=== PATIENT | male | born 1950 | race Caucasian/White ===

== ENCOUNTER 2016-09-29 22:42 | Inpatient (IN) | payer MEDICARE, OTHER ==
[~2016-09-29] VITALS: Ht 170.2 cm; Wt 82.1 kg
--- NOTE | 2016-09-29 22:54 | NUR ---
66 YO MALE BB RA FROM HOME. PT IS ALERT X 3, PER EMS PT HAD A SYNCOPE EPISODE AT HOME, FAMILY CALLED 911. PT SKIN WARM AND DRY, RR EVEN AND UNLABORED. PT GOWNED, PLACE DON EPIC PROFESSIONAL. AWAITING ORDERS FROM PROVIDER, WILL CONTINUE TO MONITOR
--- NOTE | 2016-09-29 23:21 | NUR ---
MIRA OWEN MD AT BED SIDE FOR EVAL
[2016-09-29] MEDS ORDERED: IV SET PRIMARY PUMP SET 1 EA INFUS.SET MC ONE (23:29)
[2016-09-29] MEDS ORDERED: IV NS 0.9% 500 ML IV ONE (23:29)
[2016-09-29] MEDS ORDERED: IV NS 0.9% 500 ML BAG IV ONE (23:30)
[2016-09-30] VITALS (23 sets, daily range): BP systolic 113–151; BP diastolic 68–90
[2016-09-30] LABS: BASOPHILS # (AUTO) 0.1 /CMM (0.0-0.2); BASOPHILS % (AUTO) 1.8 % (0.0-2.0); EOSINOPHILS % (AUTO) 0.1 % (0.0-6.0); HEMATOCRIT 45 % (39-51); HEMOGLOBIN 14.8 g/dL (13.5-17.5); LYMPHOCYTES # (AUTO) 0.6 /CMM (0.8-4.8); LYMPHOCYTES % (AUTO) 7.4 % (20.0-44.0); MEAN CORPUSCULAR HEMOGLOBIN 30 PG (26.0-33.0); MEAN CORPUSCULAR HGB CONC 33 g/dl (31.0-36.0); MEAN CORPUSCULAR VOLUME 90 fL (80-96); MONOCYTES # (AUTO) 0.4 /CMM (0.1-1.30); MONOCYTES % (AUTO) 5.4 % (2.0-12.0); NEUTROPHILS # (AUTO) 6.8 /CMM (1.8-8.9); NEUTROPHILS % (AUTO) 85.3 % (43.0-81.0); PLATELET COUNT (AUTO) 74 /CMM (150-450); RDW COEFFICIENT OF VARIATION 20.3 (11.5-15.0); RED BLOOD CELL COUNT(AUTO) 4.97 MIL/uL (4.5-6.0); WHITE BLOOD COUNT (AUTO) 7.9 K/uL (4.3-11.0)
[2016-09-30 00:14] LABS: TROPONIN I 0.135 ng/mL (0.00-0.056)
[2016-09-30 00:15] LABS: ALBUMIN 3.7 g/dL (3.4-5.0); BILIRUBIN,DIRECT 0.2 mg/dL (0.0-0.2); CALCIUM, SERUM 9.9 mg/dL (8.5-10.1); CREATININE 2.3 mg/dL (0.6-1.3); POTASSIUM 2.9 mmol/L (3.5-5.1); TOTAL PROTEIN, SERUM 7.1 g/dL (6.4-8.2)
[2016-09-30 00:21] LABS: INR 1.01 (0.87-1.13); PROTHROMBIN TIME 10.8 SECS (9.5-12.7)
[2016-09-30 00:35] LABS: PARTIAL THROMBOPLASTIN TIME < 20 SEC (23-34)
[2016-09-30] MEDS ORDERED: ASPIRIN 81 MG TAB.CHEW PO ONE (01:30)
--- NOTE | 2016-09-30 01:30 | NUR ---
PT BECAME TACHY IN, HR IN THE 130'SM MD OWEN NOTIFIED
--- NOTE | 2016-09-30 01:31 | NUR ---
[facility] CALLED
[2016-09-30] MEDS ORDERED: ASPIRIN 81 MG TAB.CHEW ONE (01:41)
[2016-09-30] MEDS ORDERED: ENOXAPARIN SODIUM 30 MG/0.3 ML DISP.SYRIN ONE (01:41)
[2016-09-30] MEDS ORDERED: ENOXAPARIN SODIUM 40 MG/0.4 ML DISP.SYRIN SQ ONE (01:41)
--- NOTE | 2016-09-30 01:41 | NUR ---
EMT AT BED SIDE FOR REPEAT EKG
[2016-09-30 01:43] LABS: BAND % (MANUAL) 5 % (0.0-5.0); LYMPHOCYTES % (MANUAL) 4 % (16-48); MONOCYTES % (MANUAL) 5 % (0-11.0); NEUTROPHILS % (MANUAL) 86 (42-76)
--- NOTE | 2016-09-30 01:47 | NUR ---
[facility] PAGED FOR ADMISSION
[2016-09-30] MEDS ORDERED: ENOXAPARIN SODIUM 60 MG/0.6 ML DISP.SYRIN SQ ONE (02:00)
--- NOTE | 2016-09-30 02:21 | NUR ---
TRANSPORTED PT TO ICU BED WITH EMT WITHOUT INCIDENT
[2016-09-30] MEDS ORDERED: ONDANSETRON HCL/PF 4 MG/2 ML VIAL IVP PRN (02:30)
[2016-09-30] MEDS ORDERED: MAGNESIUM HYDROXIDE 30 ML UDC PO PRN (02:30)
[2016-09-30] MEDS ORDERED: ZOLPIDEM TARTRATE 5 MG TABLET PO PRN (02:30)
[2016-09-30] MEDS ORDERED: MAG HYDROX/AL HYDROX/SIMETH 30 ML UDC PO PRN (02:30)
[2016-09-30] MEDS ORDERED: ACETAMINOPHEN 325 MG TABLET PO PRN (02:30)
[2016-09-30] MEDS ORDERED: HYDROCODONE/APAP 5/325MG 1 EACH TABLET PO PRN (02:30)
[2016-09-30] MEDS ORDERED: Z GUARD REMEDY 2 OZ OINT TP PRN (02:30)
[2016-09-30] MEDS ORDERED: DILTIAZEM HCL 50 MG IV IV PRN (03:00)
[2016-09-30] MEDS ORDERED: IV SET PRIMARY PUMP SET 1 EA INFUS.SET MC ONE (03:32)
[2016-09-30] MEDS ORDERED: IV NS 0.9% 1,000 ML ONE (03:32)
[2016-09-30] MEDS ORDERED: HEPARIN SODIUM, PORCINE 5000 UNITS/1 ML VIAL ONE (03:46)
[2016-09-30] MEDS: HEPARIN INFUSION/D5W 500 ML IV PRN ×2 (03:54→21:01)
[2016-09-30] MEDS: IV NS 0.9% 1,000 ML IV PRN ×2 (03:56→18:52)
[2016-09-30] MEDS ORDERED: HEPARIN SODIUM, PORCINE 5000 UNITS/1 ML VIAL SQ ONE (04:00)
--- NOTE | 2016-09-30 05:24 | NUR ---
DIETITIAN PT WAS ADMITTED FROM ER WITH DIAGNOSIS R/O PULMONARY EMBOLISM. SYNCOPAL EPISODE @ HOME, WITNESSED BY FAMILY, S/P FALL. CT-SCAN OF THE HEAD- NEGATIVE. PT IS SUPPOSED TO HAVE NUCLEAR MEDICINE STUDY IN A.M. TO R/O PE. PT IS AWAKE, ALERT, ORIENTED x3, COMPLIANT & COOPERATIVE. SPEECH IS CLEAR. NOMAN. MOVES ALL EXTREMITIES & FOLLOWS COMMANDS. VITAL SIGNS STABLE, AFEBRILE, SCOPE - SR. LUNGS CLEAR. O2 2 L VIA N/C. STARTED IV FLUID NS @ 75 ML/H. ALSO STARTED WEIGHT BASED HEPARIN DRIP NOT FOR ACUTE CORONARY SYNDROME AT RATE 1350 UNITS/HR AFTER BOLUS OF HEPARIN 6000 UNITS ACCORDING PROTOCOL. PT IS COMFORTABLE, DENIES ANY PAIN, SOB OR ANY OTHER DISCOMFORT. WILL CONTINUE CLOSE MONITORING.
--- NOTE | 2016-09-30 06:04 | NUR ---
NIGHT SHIFT MANAGER NUCLEAR MEDICINE /EXT 4134/ WAS CALLED AND MASSAGE LEFT. ALSO RADIOLOGY DEPARTMENT WAS NOTIFIED /EXT 4069/ THAT PT NEEDS NUCLEAR MEDICINE TEST TO BE DONE TO R/O PE. PT IS COMFORTABLE RESTING. NO S/S OF ANY DISTRESS. REMAINS ON HEPARIN DRIP. NEXT PTT AT 10 A.M.
[2016-09-30] MEDS ORDERED: POTASSIUM CHLORIDE 20 MEQ TAB.PRT.SR PO ONE ×2 (06:42→17:00)
[2016-09-30] MEDS: POTASSIUM CHLORIDE 20 MEQ TAB.PRT.SR PO SCH ×5 (06:46→12:16)
[2016-09-30] MEDS: ASPIRIN 325 MG TABLET PO SCH (09:45)
[2016-09-30] MEDS: METOPROLOL TARTRATE 25 MG TABLET PO SCH ×2 (09:46→21:00)
[2016-09-30] MEDS: PANTOPRAZOLE 40 MG TABLET.DR PO SCH (09:46)
[2016-09-30 10:23] LABS: MAGNESIUM 2.4 mg/dL (1.8-2.4); PHOSPHORUS 4.7 mg/dL (2.5-4.9)
[2016-09-30 10:35] LABS: THYROID STIMULATING HORMONE 0.211 uIU/mL (0.358-3.74)
[2016-09-30] MEDS ORDERED: LENA10CA PO (10:45)
[2016-09-30] MEDS ORDERED: LOSA50TA21 PO (10:45)
[2016-09-30] MEDS ORDERED: FURO40TA5 PO (10:45)
[2016-09-30] MEDS ORDERED: DEXA4TAB PO (10:45)
[2016-09-30] MEDS ORDERED: ACYC400T PO (10:45)
[2016-09-30] MEDS ORDERED: HYDR-3658 PO (10:45)
[2016-09-30] MEDS ORDERED: TEMA30CA PO (10:45)
[2016-09-30] MEDS ORDERED: METO5TAB7 PO (10:45)
[2016-09-30] MEDS ORDERED: DIPH1TAB PO (10:45)
[2016-09-30] MEDS ORDERED: POTASSIUM CL 8 MEQ PO (10:45)
[2016-09-30] MEDS ORDERED: CEPH500C2 PO (10:45)
[2016-09-30] MEDS ORDERED: ROSU10TA PO (10:45)
--- NOTE | 2016-09-30 11:09 | NUR ---
R POPLITIAL POSITIVE FOR DVT, DR BAZAN NOTIFIED. PT IS CONTINUET ON HEPARIN LAST APTT IS 58, WHICH IS WITHIN THE RANGE.
[2016-09-30 12:40] LABS: CALCIUM, SERUM 9.2 mg/dL (8.5-10.1); CREATININE 2.1 mg/dL (0.6-1.3)
[2016-09-30 12:42] LABS: POTASSIUM 2.7 mmol/L (3.5-5.1)
[2016-09-30] MEDS ORDERED: HYDROCODONE/APAP 10/325MG 1 EA TABLET PO PRN (14:00)
[2016-09-30] MEDS ORDERED: DIPHENOXYLATE HCL/ATROP SULF 1 UDTAB TABLET PO PRN (14:00)
--- NOTE | 2016-09-30 14:45 | NUR ---
DR MALONE CALLED WITH REPORT OF HIGH POSSIBILITY OF PE RIGHT MID AND LOWER LUNGS ON VQ SCAN. DR BAZNA NOTIFIED.
[2016-09-30] MEDS ORDERED: TEMAZEPAM 15 MG CAPSULE PO PRN (15:30)
[2016-09-30 16:25] LABS: APPEARANCE,URINE CLOUDY (CLEAR); BILIRUBIN,URINE NEGATIVE (NEGATIVE); BLOOD, URINE NEGATIVE Ery/uL (NEGATIVE); COLOR,URINE YELLOW (YELLOW); KETONES,URINE NEGATIVE (NEGATIVE); LEUKOCYTE ESTERASE ,URINE NEGATIVE (NEGATIVE); NITRITE, URINE NEGATIVE (NEGATIVE); PH,URINE 5.5 (5.0-8.0); PROTEIN,URINE NEGATIVE (NEGATIVE); UGLUCOSE NEGATIVE (NEGATIVE); UROBILINOGEN,URINE 0.2 EU/dL (0.2)
[2016-09-30 16:27] LABS: CREATININE, URINE 122.4 MG/DL (30.0-125.0); URINE TOTAL PROTEIN 26.6 mg/dL (0-11.9)
[2016-09-30 16:51] LABS: RBC,URINE 0-2 /HPF (0-2); WBC,URINE 0-2 /HPF (0-3)
[2016-09-30 16:52] LABS: BACTERIA,URINE Moderate /HPF (None Seen); SQUAMOUS EPITHELIAL CELL,UR Rare /HPF (None Seen)
[2016-09-30 16:59] LABS: EOSINOPHIL,URINE None Seen
[2016-09-30] MEDS: ACYCLOVIR 200 MG CAPSULE PO SCH (17:48)
[2016-09-30] MEDS: CEPHALEXIN MONOHYDRATE 500 MG CAPSULE PO SCH ×2 (17:49→21:00)
[2016-09-30] MEDS: REVLIMID 10 MG PO SCH (17:49)
--- NOTE | 2016-09-30 20:00 | NUR ---
PETROPHYSICIST RCD PT W/DX NSTEMI, R/O PE; PT IS A/O x4; NSR ON MONITOR. BP WNL. CLEAR LUNG SOUNDS ON 02 2L NC. PT ASSISTED TO BSC FOR BOWEL MOVEMENT. PT C/O DIARRHEA WITH LOMOTIL GIVEN BY PRIOR SHIFT. MULTIPLE BRUISING THROUGHOUT BODY PT S/P FALL PRIOR TO ADMISSION. LFA 20 G W/NS @ 75 ML/HR AND RFA 20 G W/HEPARIN DRIP AT 1350 UNITS/HR WITH PTT TO BE DONE IN THE MORNING. PT DENIES PAIN AT THIS TIME. HOB ELEVATED. BED LOCKED AND IN LOW POSITION. CONTINUE TO MONITOR.
[2016-10-01] VITALS (21 sets, daily range): BP systolic 93–122; BP diastolic 57–74
[2016-10-01 05:05] LABS: BASOPHILS % (AUTO) 0.2 % (0.0-2.0); EOSINOPHILS # (AUTO) 0.4 /CMM (0.0-0.7); EOSINOPHILS % (AUTO) 5.5 % (0.0-6.0); HEMATOCRIT 35 % (39-51); HEMOGLOBIN 11.7 g/dL (13.5-17.5); LYMPHOCYTES # (AUTO) 0.7 /CMM (0.8-4.8); LYMPHOCYTES % (AUTO) 11.3 % (20.0-44.0); MEAN CORPUSCULAR HEMOGLOBIN 30 PG (26.0-33.0); MEAN CORPUSCULAR HGB CONC 34 g/dl (31.0-36.0); MEAN CORPUSCULAR VOLUME 89 fL (80-96); MONOCYTES # (AUTO) 0.8 /CMM (0.1-1.30); NEUTROPHILS # (AUTO) 4.6 /CMM (1.8-8.9); PLATELET COUNT (AUTO) 81 /CMM (150-450); RDW COEFFICIENT OF VARIATION 20.9 (11.5-15.0); RED BLOOD CELL COUNT(AUTO) 3.86 MIL/uL (4.5-6.0); WHITE BLOOD COUNT (AUTO) 6.5 K/uL (4.3-11.0)
[2016-10-01 05:09] LABS: ALBUMIN 2.8 g/dL (3.4-5.0); BILIRUBIN,TOTAL 0.5 mg/dL (0.2-1.0); CALCIUM, SERUM 8.4 mg/dL (8.5-10.1); CREATININE 1.4 mg/dL (0.6-1.3); MAGNESIUM 2.4 mg/dL (1.8-2.4); PHOSPHORUS 3.1 mg/dL (2.5-4.9); TOTAL PROTEIN, SERUM 5.4 g/dL (6.4-8.2)
[2016-10-01 05:10] LABS: TROPONIN I 0.137 ng/mL (0.00-0.056)
[2016-10-01 05:17] LABS: THYROID STIMULATING HORMONE 0.46 uIU/mL (0.358-3.74)
[2016-10-01 05:33] LABS: POTASSIUM 2.8 mmol/L (3.5-5.1)
[2016-10-01] MEDS ORDERED: IV SET PRIMARY PUMP SET 1 EA INFUS.SET MC ONE (05:39)
[2016-10-01] MEDS ORDERED: POTASSIUM CL. PREMIX PERIPHER. 50 ML ONE (05:39)
[2016-10-01 05:47] LABS: EOSINOPHILS % (MANUAL) 3 % (0-4); LYMPHOCYTES % (MANUAL) 12 % (16-48); MONOCYTES % (MANUAL) 7 % (0-11.0); NEUTROPHILS % (MANUAL) 78 (42-76)
[2016-10-01] MEDS ORDERED: POTASSIUM CL. PREMIX PERIPHER. 50 ML IV SCH (06:00)
--- NOTE | 2016-10-01 06:16 | NUR ---
GRAIN MILL WORKER PT NOT TOLERATING POTASSIUM IV; CALL PLACED TO DR RUANO.
[2016-10-01] MEDS ORDERED: POTASSIUM CHLORIDE 10 MEQ TABLET.SA PO SCH ×2 (07:00→08:00)
--- NOTE | 2016-10-01 08:00 | NUR ---
LSW; ASSESSMENT RECEIVED PT AWAKE AND ORIENTED X4. PT DENIES ANY PAIN OR SOB. PT ON HEPARIN DRIP AT 1100 UNITS/HR, DUE TO PE AND DVT. PTT PENDING FOR AT 1230. NO S/S OF BLEEDING. WILL CONTINUE TO MONITOR CLOSELY.
[2016-10-01] MEDS: PANTOPRAZOLE 40 MG TABLET.DR PO SCH (08:43)
[2016-10-01] MEDS: POTASSIUM CHLORIDE 20 MEQ TAB.PRT.SR PO SCH ×5 (08:44→12:16)
[2016-10-01] MEDS: ATORVASTATIN 10 MG TABLET PO SCH (08:44)
[2016-10-01] MEDS: ACYCLOVIR 200 MG CAPSULE PO SCH ×2 (08:44→17:05)
[2016-10-01] MEDS: ASPIRIN 325 MG TABLET PO SCH (08:44)
[2016-10-01] MEDS: METOPROLOL TARTRATE 25 MG TABLET PO SCH ×2 (08:45→20:40)
[2016-10-01] MEDS ORDERED: LOSARTAN POTASSIUM 50 MG TABLET PO SCH (09:00)
[2016-10-01] MEDS ORDERED: REVLIMID 10 MG PO SCH (09:00)
[2016-10-01] MEDS: CEPHALEXIN MONOHYDRATE 500 MG CAPSULE PO SCH ×4 (09:24→20:40)
[2016-10-01] MEDS: DEXAMETHASONE 4 MG TABLET PO SCH (09:25)
[2016-10-01] MEDS: REVLIMID 10 MG PO SCH (09:26)
[2016-10-01] MEDS: IV NS 0.9% 1,000 ML IV PRN ×2 (09:26→23:00)
--- NOTE | 2016-10-01 15:45 | NUR ---
MALT HOUSE OPERATOR; OOB PT REQUESTING TO GET OOB. DR. CHACON NOTIFIED AND ORDERED FOR PT TO HAVE ONE MORE DAY OF BED REST. AND GET OOB TOMORROW 10/02/16. DISCUSSED WITH PT REGARDING BED REST. PT ABLE TO VERBALIZE UNDERSTANDING OF ORDERS.
[2016-10-01] MEDS ORDERED: RIVAROXABAN 10 MG TABLET PO SCH (17:00)
[2016-10-01] MEDS ORDERED: RIVAROXABAN 15 MG TABLET PO SCH (17:00)
--- NOTE | 2016-10-01 18:50 | NUR ---
RN MS NOTES RECEIVED PT FROM ICU NURSE ALEXUS, PT AWAKE, ALERT AND ORIENTED, DENIES PAIN, NOT IN DISTRESS, ROOM SET UP ORIENTATION PROVIDED, VERBALIZED UNDERSTANDING, IV FLUIDS INFUSING WELL, PT OWN MED KEPT AT NARCOTIC BOX, ENDORSED TO PM NURSE, MADE COMFORTABLE IN BED.
--- NOTE | 2016-10-01 18:50 | NUR ---
ONYX CHIP TERRAZZO WORKER; TRANSFER TRANSFER PT TO TELEMETRY ROOM 315-2 VIA BED, WITH ACLS PROTOCOL. REPORT GIVEN TO NUVIA JEFFERSON. PT TOLERATED PROCEDURE. MEDICATION REVLIMID GIVEN TO RN AND DISCUSSED THAT NEEDS TO BE KEPT IN NARCOTIC BOX. COUNT WAS 4TAB ENDORSED. MADE AWARE THAT PT HAS HIS OWN MEDICATION STORED IN OUR PHARMACY.
--- NOTE | 2016-10-01 19:30 | NUR ---
INFANTRY INDIRECT FIRE CREWMEMBER OPENING NOTES: RECEIVED PT IN BED WITH NO APPARENT DISTRESS. PT IS A/O X4. PT IS ON TELE AND IS SR. PT HAS IV ON R HAND #20g AND L HAND 20G BEING INFUSED WITH NS AT 75ML/HR. CALL LIGHT WITHIN PT'S REACH. BED KEPT IN LOCKED, LOWEST POSITION, AND SIDE RAILS X 2 UP. WILL CONTINUE TO MONITOR PT.
[2016-10-01] MEDS: CYANOCOBALAMIN 1,000 MCG/ML VIAL IM SCH (20:40)
[2016-10-02] VITALS: BP 118/65
[2016-10-02 04:00] VITALS: BP_SYST 121; BP_SYST 125; BP_DIAS 60; BP_DIAS 64
[2016-10-02 07:23] VITALS: BP 118/66
[2016-10-02 08:03] LABS: BASOPHILS % (AUTO) 0.1 % (0.0-2.0); EOSINOPHILS # (AUTO) 0.1 /CMM (0.0-0.7); EOSINOPHILS % (AUTO) 0.7 % (0.0-6.0); HEMATOCRIT 30 % (39-51); HEMOGLOBIN 10.4 g/dL (13.5-17.5); LYMPHOCYTES # (AUTO) 0.6 /CMM (0.8-4.8); LYMPHOCYTES % (AUTO) 7.3 % (20.0-44.0); MEAN CORPUSCULAR HEMOGLOBIN 31 PG (26.0-33.0); MEAN CORPUSCULAR HGB CONC 34 g/dl (31.0-36.0); MEAN CORPUSCULAR VOLUME 89 fL (80-96); MONOCYTES # (AUTO) 0.5 /CMM (0.1-1.30); MONOCYTES % (AUTO) 6.3 % (2.0-12.0); NEUTROPHILS # (AUTO) 6.5 /CMM (1.8-8.9); NEUTROPHILS % (AUTO) 85.6 % (43.0-81.0); PLATELET COUNT (AUTO) 58 /CMM (150-450); RDW COEFFICIENT OF VARIATION 20.6 (11.5-15.0); RED BLOOD CELL COUNT(AUTO) 3.39 MIL/uL (4.5-6.0); WHITE BLOOD COUNT (AUTO) 7.6 K/uL (4.3-11.0)
--- NOTE | 2016-10-02 08:30 | NUR ---
MARINE RESOURCE ECONOMIST CLOSING NOTES: ALL NEEDS WERE ATTENDED AND ANTICIPATED FOR. PT SHOWS NO S/S OF DISTRESS. PT IS A/O X4. PT IS ON TELE AND IS SR 63. PT HAS IV ON R HAND #20g AND L HAND 20G BEING INFUSED WITH NS AT 75ML/HR. CALL LIGHT WITHIN PT'S REACH. BED KEPT IN LOCKED, LOWEST POSITION, AND SIDE RAILS X 2 UP. ENDORSED TO AM NURSE FOR ALEJANDRO.
[2016-10-02 08:31] LABS: IRON, SERUM 43 ug/dl (50-175); TOTAL IRON BINDING CAPACITY 274 ug/dl (250-450)
[2016-10-02 08:33] LABS: ALBUMIN 2.8 g/dL (3.4-5.0); BILIRUBIN,TOTAL 0.4 mg/dL (0.2-1.0); CALCIUM, SERUM 8.4 mg/dL (8.5-10.1); MAGNESIUM 2.2 mg/dL (1.8-2.4); POTASSIUM 3.8 mmol/L (3.5-5.1); TOTAL PROTEIN, SERUM 5.4 g/dL (6.4-8.2)
[2016-10-02 08:39] LABS: FERRITIN 288 ng/mL (8-388)
--- NOTE | 2016-10-02 08:45 | NUR ---
MS RN RECEIVED ON BED, AWAKE,ALERT,ORIENTED X4,NOT IN ANY FORM OF DISTRESS, RESPIRATIONS EVEN AND UNLABORED, NO SOB NOTED, LUNGS ARE CLEAR,ABDOMEN SOFT,POSITIVE BOWEL SOUNDS, DENIES PAIN AT THIS TIME,ALL NEEDS ATTENDED.
[2016-10-02 09:00] LABS: LYMPHOCYTES % (MANUAL) 11 % (16-48); MONOCYTES % (MANUAL) 8 % (0-11.0); NEUTROPHILS % (MANUAL) 81 (42-76)
[2016-10-02] MEDS: REVLIMID 10 MG PO SCH (09:00)
--- NOTE | 2016-10-02 09:30 | NUR ---
MS JEFFERSON BREAKFAST SERVED,DUE MEDS GIVEN,TOLERATED WELL.
[2016-10-02] MEDS: ATORVASTATIN 10 MG TABLET PO SCH (10:19)
[2016-10-02] MEDS: CEPHALEXIN MONOHYDRATE 500 MG CAPSULE PO SCH (10:19)
[2016-10-02] MEDS: ACYCLOVIR 200 MG CAPSULE PO SCH (10:19)
[2016-10-02] MEDS: DEXAMETHASONE 4 MG TABLET PO SCH (10:19)
[2016-10-02] MEDS: PANTOPRAZOLE 40 MG TABLET.DR PO SCH (10:19)
[2016-10-02] MEDS: ASPIRIN 325 MG TABLET PO SCH (10:19)
[2016-10-02 10:26] VITALS: BP 108/71
[2016-10-02] MEDS: METOPROLOL TARTRATE 25 MG TABLET PO SCH (10:26)
--- NOTE | 2016-10-02 10:30 | NUR ---
MS RN PATIENT WANT TO GO HOME FOR CHEMOTHERAPY, PAGED DR. BAZAN FOR DISCHARGE ORDER,ALL NEEDS ATTENDED.
[2016-10-02] MEDS: CYANOCOBALAMIN 1,000 MCG/ML VIAL IM SCH (10:33)
--- NOTE | 2016-10-02 10:37 | NUR ---
PRODUCT DEVELOPMENT MANAGER NOTES DC TELEMETRY PER DR. BERTRAND.
[2016-10-02] MEDS ORDERED: RIVA10TA PO (10:44)
--- NOTE | 2016-10-02 11:00 | NUR ---
MS CORSETIER INSTRUCTIONS GIVEN, PATIENT REFUSED TO TAKE PICTURES ON BILATERAL ARMS BRUISES, NO OPEN WOUND NOTED AND BILATERAL LOWER EXTREMITIES.
--- NOTE | 2016-10-02 11:40 | NUR ---
MS RN WENT HOME VIA [facility],ALL NEEDS ATTENDED.DR. SOW WAS NOTIFIED.
[2016-10-17] MEDS ORDERED: CYANOCOBALAMIN 1,000 MCG/ML VIAL IM SCH (09:00)
[2016-12-08] MEDS ORDERED: CYANOCOBALAMIN 1,000 MCG/ML VIAL IM SCH (09:00)
== END 2016-10-02 12:00 | disposition home or self-care (01) | DRG 280 ==
LOC: ER 22:43 → ICU 09-30 01:58 → MED 10-01 19:00 → TELE 10-02 03:12 → MED 10-02 08:56
PROVIDERS: ADMIT Internal Medicine; ATTEND Internal Medicine
DX: I82.401 Acute embolism and thrombosis of unspecified deep veins of right lower extremity (principal); I21.4 Non-ST elevation (NSTEMI) myocardial infarction; I26.99 Other pulmonary embolism without acute cor pulmonale; J96.01 Acute respiratory failure with hypoxia; N17.9 Acute kidney failure, unspecified; E87.1 Hypo-osmolality and hyponatremia; D68.69 Other thrombophilia; Z94.81 Bone marrow transplant status; C90.00 Multiple myeloma not having achieved remission; D69.6 Thrombocytopenia, unspecified; E86.0 Dehydration; Z87.891 Personal history of nicotine dependence; Z92.21 Personal history of antineoplastic chemotherapy; E87.6 Hypokalemia; H02.60 Xanthelasma of unspecified eye, unspecified eyelid; R55 Syncope and collapse; I12.9 Hypertensive chronic kidney disease with stage 1 through stage 4 chronic kidney disease, or unspecified chronic kidney disease; N18.9 Chronic kidney disease, unspecified; E86.9 Volume depletion, unspecified; Z86.718 Personal history of other venous thrombosis and embolism; D64.9 Anemia, unspecified; E86.1 Hypovolemia; E53.8 Deficiency of other specified B group vitamins; Z86.711 Personal history of pulmonary embolism; Z85.819 Personal history of malignant neoplasm of unspecified site of lip, oral cavity, and pharynx
CPT/HCPCS: 36415; 70450-TC; 71010-TC; 76770-TC; 78580; 80048-TC; 80053-TC; 80061-TC; 80076-TC; 81000-TC; 82306; 82570-TC; 82728-TC; 82746; 83540-TC; 83735-TC; 84100-TC; 84155-TC; 84300-TC; 84439-TC; 84443-TC; 84484-TC; 85025-TC; 85378-TC; 85730-TC; 87081-TC; 87086-TC; 93307-TC; 93970-TC; 94799-TC; A4606; A9540; A9567; J1644; J1650; J3420; J3480; J7030; J7040; J8540; Z7610